=== PATIENT | male | born 1975 | race Caucasian/White ===

== ENCOUNTER 2021-03-25 11:21 | Outpatient (CLI) | payer OTHER, SELFPAY ==
--- NOTE | 2021-03-25 11:37 | XR_ITS ---
WS: [id number] RIGHT SHOULDER: 3 VIEW(S) TECHNIQUE: Internal and external rotation with Y view. HISTORY: R SHOULDER PAIN COMPARISON: None available. No fracture or dislocation or soft tissue abnormality. Very mild narrowing of the AC joint. No fractures. XR/XR shoulder RT min 2V* [id number] IMPRESSION: Very minimal narrowing of the RIGHT AC joint. Otherwise negative.
== END 2021-03-25 11:22 | disposition home or self-care (01) ==
LOC: RAD 11:29
PROVIDERS: PCP Nurse Practitioner Family; Visit Provider Nurse Practitioner Family
DX: M25.511 Pain in right shoulder (principal)
CPT/HCPCS: 73030